=== PATIENT | female | born 1975 | race American Indian/Alaskan Native ===

== ENCOUNTER 2017-05-16 21:20 | Emergency (ER) | payer OTHER | END 2017-05-16 23:16 | disposition left against medical advice (07) | LOC: ED 21:20 | DX: R10.9 Unspecified abdominal pain (principal); Z53.21 Procedure and treatment not carried out due to patient leaving prior to being seen by health care provider ==

== ENCOUNTER 2017-10-12 13:11 | Emergency (ER) | payer OTHER ==
[2017-10-12 14:38] VITALS: BP 174/104
--- NOTE | 2017-10-12 15:15 | XRay Report ---
Left forearm 2 views: History: Left arm injury pain. Findings: No fracture, periosteal reaction or lytic lesion. Impression: Essentially negative left forearm.
[2017-10-12] MEDS ORDERED: TYLENOL #3 PO ONE (17:08)
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
== END 2017-10-12 17:17 | disposition home or self-care (01) ==
LOC: ED 13:11
DX: M79.632 Pain in left forearm (principal); I10 Essential (primary) hypertension; V89.2XXA Person injured in unspecified motor-vehicle accident, traffic, initial encounter; Y93.89 Activity, other specified; Y92.89 Other specified places as the place of occurrence of the external cause; Y99.8 Other external cause status
CPT/HCPCS: 99284